=== PATIENT | female | born 1960 | race Caucasian/White ===

== ENCOUNTER 2022-08-04 17:02 | Emergency (ER) | payer BC ==
[~2022-08-04] VITALS: Ht 170.2 cm; Wt 81.8 kg
[2022-08-04 17:14] VITALS: BP 122/84
[2022-08-04] MEDS ORDERED: GABA-530 PO (17:28)
[2022-08-04] MEDS ORDERED: AMOX-117 PO (17:28)
== END 2022-08-04 19:27 | disposition home or self-care (01) ==
LOC: ER 17:03
DX: G62.9 Polyneuropathy, unspecified (principal); R20.0 Anesthesia of skin; M79.605 Pain in left leg; G89.29 Other chronic pain; H66.93 Otitis media, unspecified, bilateral
CPT/HCPCS: 99283